=== PATIENT | male | born 1985 | race Caucasian/White ===

== ENCOUNTER 2020-03-27 21:14 | Emergency (ER) | payer SELFPAY ==
[2020-03-27] MEDS ORDERED: LORazepam 1 MG Tab PO ONE (21:28)
--- NOTE | 2020-03-27 22:21 | EDM.PDOC ---
ED HPI GENERAL MEDICAL PROBLEM - General Chief Complaint: Chest Pain Stated Complaint: CHEST PAIN Time Seen by Provider: 03/27/20 21:18 Source of Information: Reports: Patient History Limitations: Reports: No Limitations - History of Present Illness INITIAL COMMENTS - FREE TEXT/NARRATIVE: 35-year-old male with a past medical history of a pediatric congenital heart surgery presenting with palpitations and anxiety. Approximately 30 minutes prior to arrival, the patient drank a 5-hour Energy Drink. After drinking this , he began experiencing palpitations and feeling extremely anxious, so he came to the emergency department. He denies any chest discomfort or shortness of breath. He believes that he may be having a panic attack. chest Pain Score (Numeric/FACES): 4 - Related Data Allergies Allergy/AdvReac Type Severity Reaction Status Date / Time No Known Allergies Allergy Verified 03/27/20 21:31 Home Meds: Home Meds . 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 Constitutional: Reports: No Symptoms HEENT: Reports: No Symptoms Respiratory: Denies: Shortness of Breath Cardiovascular: Reports: Palpitations, Other (Palpitations). Denies: Chest Pain , Edema, Lightheadedness, Syncope Endocrine: Reports: No Symptoms GI/Abdominal: Reports: No Symptoms : Reports: No Symptoms Musculoskeletal: Reports: No Symptoms Skin: Reports: No Symptoms Neurological: Reports: No Symptoms Psychiatric: Reports: No Symptoms Hematologic/Lymphatic: Reports: No Symptoms Immunologic: Reports: No Symptoms ED EXAM, GENERAL - Physical Exam Exam: See Below Free Text/Narrative:: Vital signs reviewed. Nursing notes reviewed. Constitutional: Awake, alert, anxious appearing man Head: Normocephalic, atraumatic Eyes: EOMI, PERRL at 3 mm bilaterally, conjunctiva normal, no discharge, no scleral icterus Ears, Nose, Throat: External ears and ears normal, moist oral mucosa, no thyromegaly Cardiovascular: Tachycardic, 2+ radial pulse, capillary refill less than 2 seconds. No murmur, rub, or gallop. Pulmonary: normal work of breathing, no accessory muscle use, clear to auscultation bilaterally Abdomen/GI: Soft, nontender, nondistended, no guarding or rigidity, no masses Musculoskeletal: No deformities Integumentary: Appropriate color for ethnicity, warm, dry, no pallor or jaundice , no rash Neurologic: Alert, answering questions appropriately, normal speech, no facial droop, moving all extremities well Psychiatric: Anxious appearing. No hallucinations, rational thought process. EKG INTERPRETATION EKG Date: 03/27/20 Time: 21:18 Rhythm: Other (Sinus tachycardia) [place]: RAD-Right [place] Deviation P-Wave: Present QRS: Normal ST-T: Other (TWI in aVF/III) QT: Normal Course - Vital Signs Text/Narrative:: 35-year-old male presenting with palpitations and anxiety after drinking energy drink. On arrival, he was initially tachycardic and hypertensive. We obtained a twelve-lead EKG, showing sinus tachycardia but no acute ischemia or ectopy or arrhythmia. Patient refused any IV access or blood draws but was agreeable to p.o. lorazepam. After this medication went into effect, he felt much more calm and comfortable and his palpitations and anxiety had subsided. He had no complaints this point. Denied any chest discomfort or shortness of breath. He was complaint free and resting comfortably. I think this presentation could be due to a panic attack, potentially due to the energy drink that he had earlier. Given that he is complaint-free at this time, we did not pursue any laboratory studies or further work-up given that he is back to normal. He is to stable discharge home with outpatient primary care follow-up. Strict ED return precautions were provided and he was discharged in good condition. All questions answered prior to departure. Last Recorded V/S: Last Vital Signs Temp 36.2 C 03/27/20 21:14 Pulse 99 03/27/20 21:34 Resp 18 05/21/20 21:34 BP 147/103 H 03/27/20 21:34 Pulse Ox 98 03/27/20 21:34 - Orders/Labs/Meds Orders: Active Orders 24 hr Category Date Time Status Cardiac Monitoring [RC] . DIRECTED Care 03/27/20 21:29 Active EKG 12 Lead [EKG Documentation Completion] [RC] STAT Care 03/27/20 21:29 Active Pulse Oximetry [RC] ASDIRECTED Care 03/27/20 21:29 Active Meds: Medications Discontinued Medications Generic Name Dose Route Start Last Admin Trade Name Freq PRN Reason Stop Dose Admin Lorazepam 1 mg 03/27/20 21:28 03/27/20 21:40 Ativan PO 03/27/20 21:29 1 mg ONETIME ONE Administration Departure - Departure Time of Disposition: 22:21 Disposition: Home, Self-Care 01 Condition: Good Clinical Impression: Panic attack Referrals: [facility] [Provider Group] - 1 Week (For follow-up of symptoms.) Additional Instructions: The following information is given to patients seen in the emergency department who are being discharged to home. This information is to outline your options for follow-up care. We provide all patients seen in our emergency department with a follow-up referral. The need for follow-up, as well as the timing and circumstances, are variable depending upon the specifics of your emergency department visit. If you don't have a primary care physician on staff, we will provide you with a referral. We always advise you to contact your personal physician following an emergency department visit to inform them of the circumstance of the visit and for follow-up with them and/or the need for any referrals to a consulting specialist. The emergency department will also refer you to a specialist when appropriate. This referral assures that you have the opportunity for follow-up care with a specialist. All of these measure are taken in an effort to provide you with optimal care, which includes your follow-up. Under all circumstances we always encourage you to contact your private physician who remains a resource for coordinating your care. When calling for follow-up care, please make the office aware that this follow-up is from your recent emergency room visit. If for any reason you are refused follow-up, please contact the [facility] Emergency Department at and asked to speak to the emergency department charge nurse. Sepsis Event Note - Evaluation Sepsis Screening Result: No Definite Risk - Focused Exam Vital Signs: Vital Signs Temp Pulse Resp BP Pulse Ox 03/27/20 21:34 99 18 147/103 H 98 03/27/20 21:14 36.2 C 109 H 20 170/117 H 99 Date Exam was Performed: 03/27/20 Time Exam was Performed: 22:16 - My Orders Last 24 Hours: My Active Orders 03/27/20 21:29 Cardiac Monitoring [RC] . DIRECTED EKG 12 Lead [EKG Documentation Completion] [RC] STAT Pulse Oximetry [RC] ASDIRECTED - Assessment/Plan Last 24 Hours: My Active Orders 03/27/20 21:29 Cardiac Monitoring [RC] . DIRECTED EKG 12 Lead [EKG Documentation Completion] [RC] STAT Pulse Oximetry [RC] ASDIRECTED
== END 2020-03-27 22:38 | disposition home or self-care (01) ==
LOC: MW.ED 21:14
DX: F41.0 Panic disorder [episodic paroxysmal anxiety] (principal); F17.210 Nicotine dependence, cigarettes, uncomplicated
CPT/HCPCS: 93005; 99284; A9270; 99283